=== PATIENT | female | born 1990 | race Caucasian/White ===

== ENCOUNTER 2017-03-22 05:17 | Emergency (ER) | payer OTHER ==
[2017-03-22 07:10] LABS: BASOPHIL % 0.4 % (0-2); PLATELET COUNT 363 x10^3mcL (130-400); RED CELL DISTRIBUTION WIDTH 13.3 % (11.5-14.5)
[2017-03-22 07:16] VITALS: BP 122/64
[2017-03-22 07:28] LABS: CARBON DIOXIDE 25.8 mmol/L (21-32); CHLORIDE SERUM 105 mmol/L (98-107); CREATININE SERUM 0.7 mg/dL (0.6-1.0); GFR1 > 60 mL/min; GLUCOSE SERUM 109 mg/dL (74-106); POTASSIUM SERUM 3.8 mmol/L (3.5-5.1); SODIUM SERUM 140 mmol/L (136-145)
[2017-03-22 07:32] LABS: ALKALINE PHOSPHATASE 70 U/L (46-116); ALT/SGPT 19 U/L (14-59); AMYLASE 38 U/L (25-115); AST/SGOT 14 U/L (15-37); BILIRUBIN TOTAL 0.36 mg/dL (0.20-1.00); LIPASE 122 IU/L (73-393); TOTAL PROTEIN, SERUM 7.6 g/dL (6.4-8.2)
[2017-03-22 07:34] LABS: ALBUMIN 3.3 g/dL (3.4-5.0)
== END 2017-03-22 07:59 | disposition home or self-care (01) ==
LOC: ED 05:17
PROVIDERS: Emergency Medicine
DX: R10.33 Periumbilical pain (principal); R35.8 Other polyuria
CPT/HCPCS: 36415; 83880

== ENCOUNTER 2018-09-20 19:50 | Emergency (ER) | payer OTHER ==
[~2018-09-20] VITALS: Ht 162.6 cm; Wt 99.5 kg
[2018-09-20 20:11] VITALS: Ht 162.6 cm; Wt 99.5 kg
[2018-09-20 20:45] VITALS: BP 128/78
== END 2018-09-20 20:45 | disposition home or self-care (01) ==
LOC: ED 19:50
DX: J02.9 Acute pharyngitis, unspecified (principal)

== ENCOUNTER 2018-10-19 22:54 | Emergency (ER) | payer OTHER ==
[~2018-10-19] VITALS: Ht 162.6 cm; Wt 98.4 kg
[2018-10-19 23:20] VITALS: Ht 162.6 cm; Wt 98.4 kg
[2018-10-20 00:25] VITALS: BP 125/86
== END 2018-10-20 00:25 | disposition home or self-care (01) ==
LOC: ED 22:54
DX: K21.9 Gastro-esophageal reflux disease without esophagitis (principal); R51 Headache
CPT/HCPCS: Q0162